=== PATIENT | female | born 1995 | race Two or more races ===

== ENCOUNTER 2018-05-27 21:43 | Emergency (ER) | payer OTHER ==
[~2018-05-27] VITALS: Ht 162.6 cm; Wt 76.2 kg
[~2018-05-27 21:43] MED LIST: MECLIZINE HCL25 MG PO; MEDROLPACK PO; PROVENTIL HFA6.7 GM IH; TUSSIONEX PENNKI5 ML PO; ZITHROMAX500 MG PO
[2018-05-27] MEDS ORDERED: ZOLOFT50 MG (21:58)
== END 2018-05-28 01:15 | disposition home or self-care (01) ==
LOC: ER 21:43 → EMR PED 21:43 → ER 21:44
DX: J03.80 Acute tonsillitis due to other specified organisms (principal)

== ENCOUNTER 2020-05-19 16:56 | Emergency (ER) | payer OTHER ==
[~2020-05-19] VITALS: Ht 165.1 cm; Wt 74.8 kg
[~2020-05-19 16:56] MED LIST changes: +ZOLOFT50 MG
== END 2020-05-19 22:36 | disposition home or self-care (01) ==
LOC: ER 16:56
DX: S81.021A Laceration with foreign body, right knee, initial encounter (principal); S00.03XA Contusion of scalp, initial encounter; W22.8XXA Striking against or struck by other objects, initial encounter; Y93.89 Activity, other specified; Y92.018 Other place in single-family (private) house as the place of occurrence of the external cause; Y99.8 Other external cause status

== ENCOUNTER 2020-06-02 16:20 | Emergency (ER) | payer OTHER ==
[~2020-06-02] VITALS: Ht 165.1 cm; Wt 68.9 kg
== END 2020-06-02 17:35 | disposition home or self-care (01) ==
LOC: ER 16:20
DX: Z48.02 Encounter for removal of sutures (principal)